=== PATIENT | female | born 1980 | race Caucasian/White ===

== ENCOUNTER 2017-12-26 07:30 | Inpatient (IN) | payer BC ==
[2017-12-26] MEDS ORDERED: TUBERCULIN PPD 5 TU/0.1ML SYRINGE (IN PATIENT USE ONLY) ID ONE (08:49)
[2017-12-26] MEDS ORDERED: DINOPROSTONE 10 MG VAGINAL SUPPOSITORY VG ONE (08:50)
[2017-12-26] MEDS ORDERED: PROMETHAZINE HCL 25 MG/1 ML VIAL IVPUSH ONE (08:51)
[2017-12-26] MEDS ORDERED: BUTORPHANOL TARTRATE 1 MG/ML VIAL IVPUSH ONE (08:52)
--- NOTE | 2017-12-26 08:54 | PN ---
Progress Note (short form) - Note Progress Note: 836am cx 1 cm 50 vx -3 mi, fhr cat 1, no contraction, cervidil rba discussed , agreed to have cervidil cervidil inserted
[2017-12-26 08:55] LABS: BASO % 0.5 % (0-2.0); EOS % 0.9 % (0-4.5); HEMATOCRIT 29.6 % (32.4-45.2); HEMOGLOBIN 9.4 GM/dL (10.7-15.3); MCH 24.7 pg (25.7-33.7); MCHC 31.9 g/dl (32.0-36.0); MEAN CELL VOLUME 77.5 fl (80-96); MEAN PLT VOLUME 9.3 fl (7.5-11.1); MONO % 8.1 % (3.8-10.2); NEUT % 71.5 % (42.8-82.8); PLATELET COUNT 149 K/MM3 (134-434); RBC 3.82 M/mm3 (3.60-5.2); RDW 16.2 % (11.6-15.6); WHITE BLOOD COUNT 7.3 K/mm3 (4.0-10.0)
[2017-12-26 08:58] VITALS: BMI 24.2
[2017-12-26] MEDS ORDERED: DEXTROSE 5%-LACTATED RINGERS 1,000 ML IV SCH (09:00)
--- NOTE | 2017-12-26 09:00 | HP ---
Past Medical History - Primary Care Physician PCP:: Sunny Parnell - Admission Chief Complaint: post date for cervidil induction History of Present Illness: 37 yo f 0 0 1 40.3 weeks, requesting induction of labor , cx 2 cm 50 vx - 3 mi, fhr cat 1, no contraction.rba to cervidil as discussed with patient History Source: Patient Limitations to Obtaining History: No Limitations - Past Medical History ...: 2 ...Para: 1 ...Term: 1 ...: 0 ...Spon : 0 ...Induced : 0 ...Multiple Gestation: 0 Heme/Onc: Yes: Anemia - Past Surgical History Hx Myomectomy: No Hx Transabdominal Cerclage: No - Smoking History Smoking history: Never smoked Have you smoked in the past 12 months: No - Alcohol/Substance Use Hx Alcohol Use: No History of Substance Use: reports: None - Social History Usual Living Arrangement: Yes: With Spouse History of Recent Travel: No Home Medications - Allergies Allergies/Adverse Reactions: Allergies Allergy/AdvReac Type Severity Reaction Status Date / Time No Known Allergies Allergy Verified 07/17/15 09:56 - Home Medications Home Medications: Ambulatory Orders Vit/Iron Fum/Folic AC [ Tablet] 1 each PO DAILY 07/07/15 Ibuprofen [Motrin -] 600 mg PO TID #21 tablet 07/19/15 Review of Systems - Review of Systems Constitutional: reports: No Symptoms Eyes: reports: No Symptoms HENT: reports: No Symptoms Neck: reports: No Symptoms Cardiovascular: reports: No Symptoms Respiratory: reports: No Symptoms Gastrointestinal: reports: No Symptoms Genitourinary: reports: No Symptoms Breasts: reports: No Symptoms Reported Musculoskeletal: reports: No Symptoms Integumentary: reports: No Symptoms Neurological: reports: No Symptoms Endocrine: reports: No Symptoms Hematology/Lymphatic: reports: No Symptoms Physical Exam - Maternity Constitutional: Yes: Well Nourished, No Distress, Calm Eyes: Yes: WNL, Conjunctiva Clear, EOM Intact HENT: Yes: WNL, Atraumatic, Normocephalic Neck: Yes: WNL, Supple, Trachea Midline Cardiovascular: Yes: WNL, Regular Rate and Rhythm Breast(s): Yes: WNL - Abdominal Exam/OB Fundal Height: 38 Number of Fetuses: Single Presentation: Vertex Contractions: No Intensity: Unaware Monitor Mode: External Heart Rate Location: [facility] Category: I Accelerations: Uniform Decelerations: None - Vaginal Exam/OB Vaginal Bleediing: No Speculum Exam: No Dilatation (cm): 1 cm Effacement (%): 50 Amniotic Membrane Status: Intact Presentation: Vertex/Position Station: -3 - Physical Exam Extremities: Yes: WNL Edema: Yes Edema: LLE: Trace, RLE: Trace Deep Tendon Reflex Grade: Normal +2 Psychiatric: Yes: WNL Hemorrhage Risk Assessment - Risk Factors Medium Risk Factors: Yes: None High Risk Factors: Yes: None Risk Score: 1 Risk Level: Medium Risk Problem List - Problems (1) Post-dates Code(s): O48.0 - POST-TERM Qualifiers: Post-term type: 40-42 weeks gestation Qualified Code(s): O48.0 - Post-term (2) Elective induction of labor planned Code(s): [id number] - Assessment/Plan admit for crvidil induction
[2017-12-26 09:08] LABS: INR 0.87 (0.83-1.09); PROTHROMBIN TIME (PATIENT) 10.2 SEC (9.7-13.0)
[2017-12-26 09:11] LABS: ACTIVATED PTT 26.6 SECONDS (25.2-36.5)
[2017-12-26 09:53] LABS: ANION GAP 9 MMOL/L (8-16); BLOOD UREA NITROGEN 13 mg/dL (7-18); CALCIUM 8.1 mg/dL (8.5-10.1); CHLORIDE 111 mmol/L (98-107); CO2 22 mmol/L (21-32); CREATININE 0.5 mg/dL (0.55-1.3); GLUCOSE,RANDOM 75 mg/dL (74-106); POTASSIUM 4.1 mmol/L (3.5-5.1); SODIUM 141 mmol/L (136-145)
[2017-12-26] MEDS ORDERED: ELECTROLYTE-148 SOLN 500 ML IV ONE ×2 (17:15→18:15)
[2017-12-26] MEDS ORDERED: FENTANYL/BUPIVACAINE/NS/PF - PCEA - 50 ML DISP.SYRIN EP ONE (17:26)
[2017-12-26] MEDS ORDERED: LIDOCAINE HCL 1% PRESERVATIVE FREE - 30ML VIAL ONE (18:11)
[2017-12-26] MEDS ORDERED: OXYTOCIN 20 UNITS in 0.9% NS 20 UNIT/1,000 ML INFUS.BAG IV ONE ×2 (18:11→20:54)
[2017-12-26] MEDS ORDERED: NALOXONE HCL 0.4 MG/ML VIAL IVPUSH PRN (18:14)
[2017-12-26] MEDS ORDERED: FENTANYL/BUPIVACAINE/NS/PF - PCEA - 50 ML DISP.SYRIN EP SCH (18:15)
--- NOTE | 2017-12-26 18:32 | PN ---
Progress Note (short form) - Note Progress Note: cx 9 cm, 100 vx 0 arom, clear , fhr cat 1, regular contraction Problem List - Problems (1) Post-dates Code(s): O48.0 - POST-TERM Qualifiers: Post-term type: 40-42 weeks gestation Qualified Code(s): O48.0 - Post-term (2) Elective induction of labor planned Code(s): [id number] -
--- NOTE | 2017-12-26 19:04 | PN ---
Progress Note (short form) - Note Progress Note: cx full 100 vx 0 mr , ocasiona variable decel , good recovery , wants to push Problem List - Problems (1) Post-dates Code(s): O48.0 - POST-TERM Qualifiers: Post-term type: 40-42 weeks gestation Qualified Code(s): O48.0 - Post-term (2) Elective induction of labor planned Code(s): [id number] -
[2017-12-26] MEDS: OXYTOCIN 20 UNITS in 0.9% NS 20 UNIT/1,000 ML INFUS.BAG IV SCH (19:25)
[2017-12-26] MEDS ORDERED: WITCH HAZEL 50% (TUCKS) 40 PAD/JAR PAD TP PRN (19:39)
[2017-12-26] MEDS ORDERED: METHYLERGONOVINE MALEATE 0.2 MG/1 ML AMP IM PRN (19:39)
[2017-12-26] MEDS ORDERED: BENZOCAINE 28 GM HEMORRHOIDAL OINTMENT TP PRN (19:39)
[2017-12-26] MEDS ORDERED: BISACODYL 10 MG SUPP.RECT RC PRN (19:39)
[2017-12-26] MEDS ORDERED: BENZOCAINE 20% 57 GM BOTTLE TP PRN (19:39)
[2017-12-26] MEDS: IBUPROFEN 600 MG TABLET (FP) PO PRN (20:50)
[2017-12-26] MEDS: ACETAMINOPHEN 325 MG TABLET (FP) PO PRN (20:51)
[2017-12-26] MEDS ORDERED: IBUPROFEN 600 MG TABLET (FP) PO ONE ×2 (20:53→20:59)
[2017-12-26] MEDS ORDERED: ACETAMINOPHEN 325 MG TABLET (FP) ONE (20:53)
[2017-12-27] MEDS: ACETAMINOPHEN 325 MG TABLET (FP) PO PRN ×3 (05:10→16:38)
[2017-12-27] MEDS: IBUPROFEN 600 MG TABLET (FP) PO PRN ×3 (05:11→16:39)
--- NOTE | 2017-12-27 07:38 | PN ---
Post Progress Note - Subjective Subjective: no complains Post Day: 1 Type of Delivery: Vital Signs: Vital Signs Temperature 98.3 F 12/27/17 06:00 Pulse Rate 54 L 12/27/17 06:00 Respiratory Rate 18 12/27/17 06:00 Blood Pressure 108/63 12/27/17 06:00 O2 Sat by Pulse Oximetry (%) 100 12/26/17 20:15 Breast Exam: Yes: Soft Uterus: Yes: Fundus Firm Incision: Yes: Dressing dry and intact - Labs Labs: CBC WBC 7.3 K/mm3 (4.0-10.0) 12/26/17 08:40 RBC 3.82 M/mm3 (3.60-5.2) 12/26/17 08:40 Hgb 9.4 GM/dL (10.7-15.3) L 12/26/17 08:40 Hct 29.6 % (32.4-45.2) L 12/26/17 08:40 MCV 77.5 fl (80-96) L 12/26/17 08:40 MCH 24.7 pg (25.7-33.7) L 12/26/17 08:40 MCHC 31.9 g/dl (32.0-36.0) L 12/26/17 08:40 RDW 16.2 % (11.6-15.6) H 12/26/17 08:40 Plt Count 149 K/MM3 (134-434) D 12/26/17 08:40 MPV 9.3 fl (7.5-11.1) 12/26/17 08:40 Absolute Neuts (auto) 5.2 K/mm3 (1.5-8.0) 12/26/17 08:40 Neutrophils % 71.5 % (42.8-82.8) 12/26/17 08:40 Lymphocytes % 19.0 % (8-40) 12/26/17 08:40 Monocytes % 8.1 % (3.8-10.2) 12/26/17 08:40 Eosinophils % 0.9 % (0-4.5) 12/26/17 08:40 Basophils % 0.5 % (0-2.0) 12/26/17 08:40 Nucleated RBC % 0 % (0-0) 12/26/17 08:40
[2017-12-27 08:05] LABS: BASO % 0.3 % (0-2.0); EOS % 0.4 % (0-4.5); HEMATOCRIT 27.1 % (32.4-45.2); HEMOGLOBIN 8.6 GM/dL (10.7-15.3); MCH 24.8 pg (25.7-33.7); MCHC 31.7 g/dl (32.0-36.0); MEAN CELL VOLUME 78.1 fl (80-96); MONO % 5.5 % (3.8-10.2); NEUT % 80.8 % (42.8-82.8); PLATELET COUNT 144 K/MM3 (134-434); RBC 3.47 M/mm3 (3.60-5.2); RDW 15.6 % (11.6-15.6); WHITE BLOOD COUNT 10.6 K/mm3 (4.0-10.0)
[2017-12-27] MEDS: FERROUS SO4 325 MG TABLET (FP) PO SCH ×2 (08:53→16:38)
[2017-12-27] MEDS: PRENATAL VITAMINS W/ FOLIC ACID TABLET (FP) PO SCH (09:08)
--- NOTE | 2017-12-27 13:23 | DS ---
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: Vital Signs Temperature 98.7 F 12/27/17 09:45 Pulse Rate 66 12/27/17 09:45 Respiratory Rate 18 12/27/17 09:45 Blood Pressure 103/54 L 12/27/17 09:45 O2 Sat by Pulse Oximetry (%) 100 12/26/17 20:15 Constitutional: Yes: Well Nourished, No Distress, Calm Eyes: Yes: WNL, Conjunctiva Clear, EOM Intact HENT: Yes: WNL, Atraumatic, Normocephalic Neck: Yes: WNL, Supple, Trachea Midline Cardiovascular: Yes: WNL, Regular Rate and Rhythm Respiratory: Yes: WNL, Regular, CTA Bilaterally Gastrointestinal: Yes: WNL ...Rectal Exam: Yes: WNL Renal/: Yes: WNL ....Post : Yes: Uterus firm, Uterus non-tender, Slight lochia rubra Breast(s): Yes: WNL Musculoskeletal: Yes: WNL Extremities: Yes: WNL Edema: No Integumentary: Yes: WNL Neurological: Yes: WNL, Alert, Oriented ...Motor Strength: WNL Psychiatric: Yes: WNL, Alert, Oriented Labs: CBC, BMP 12/27/17 07:10 12/26/17 08:40 Delivery - Delivery Vaginal Delivery: Spontaneous (no complication) Type of Anesthesia: Epidural Episiotomy/Laceration: Midline EBL (cc): 300 Delivery, Single - Stages of Labor Date 1st Stage Initiatied: 12/26/17 Time 1st Stage Initiated: 18:00 Date 2nd Stage Initiated: 12/26/17 Time 2nd Stage Initiated: 19:05 Date of Delivery: 12/26/17 Time of Delivery: 19:20 Time Placenta Delivered: 19:25 Placenta: Yes: Spontaneous - 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
[2017-12-27] MEDS ORDERED: SENNOSIDES/DOCUSATE COMBO (SENNA PLUS) TABLET (UD) PO PRN (22:00)
[2017-12-28] MEDS: ACETAMINOPHEN 325 MG TABLET (FP) PO PRN ×2 (00:18→10:49)
[2017-12-28] MEDS: IBUPROFEN 600 MG TABLET (FP) PO PRN ×2 (00:19→10:46)
[2017-12-28] MEDS: OXYTOCIN 20 UNITS in 0.9% NS 20 UNIT/1,000 ML INFUS.BAG IV SCH (00:22)
[2017-12-28] MEDS: FERROUS SO4 325 MG TABLET (FP) PO SCH (08:08)
[2017-12-28 08:18] VITALS: BP 94/66; PULSE 62; TEMP 98.3
[2017-12-28] MEDS: PRENATAL VITAMINS W/ FOLIC ACID TABLET (FP) PO SCH (10:46)
== END 2017-12-28 11:45 | disposition home or self-care (01) | DRG 807 ==
LOC: JLDR 07:30 → J3W 21:15
PROVIDERS: ADMIT Obstetrics & Gynecology; ATTEND Obstetrics & Gynecology
PROC: 10E0XZZ Delivery of Products of Conception, External Approach (ICD-10-PCS; principal; 2017-12-26)
PROC: 0W8NXZZ Division of Female Perineum, External Approach (ICD-10-PCS; 2017-12-26)
DX: O48.0 Post-term pregnancy (principal); Z37.0 Single live birth; Z3A.40 40 weeks gestation of pregnancy
CPT/HCPCS: 36415; 59409; 80048; 85025; 85461; 85610; 85730; 86593; 86850; 86870; 86900; 86901; 86902; 86999; 87389